=== PATIENT | male | born 1955 | race Caucasian/White ===

== ENCOUNTER 2018-06-19 16:09 | Emergency (ER) | payer MEDICAID ==
[~2018-06-19] VITALS: Ht 185.4 cm; Wt 88.9 kg
[2018-06-19 16:27] VITALS: BP 160/77
[2018-06-19 17:42] LABS: BASOPHILS # (AUTO) 0.08 x10^3/uL (0-0.1); BASOPHILS % (AUTO) 1 % (0-1); EOSINOPHILS # (AUTO) 0.04 x10^3/uL (0-0.4); EOSINOPHILS % (AUTO) 0 % (1-7); LYMPHOCYTES # (AUTO) 2.41 x10^3/uL (1-3.4); LYMPHOCYTES % (AUTO) 20 % (22-44); MD NO; MEAN CORPUSCULAR HEMOGLOBIN 35.3 pg (27.5-34.5); MEAN CORPUSCULAR HGB CONC 34.8 g/dL (33.2-36.2); MEAN CORPUSCULAR VOLUME 101.6 fL (81-97); MEAN PLATELET VOLUME 7.2 fL (7.4-10.4); MONOCYTES # (AUTO) 0.86 x10^3/uL (0.2-0.8); MONOCYTES % (AUTO) 7 % (2-9); NEUTROPHILS # (AUTO) 8.71 x10^3/uL (1.8-6.8); NEUTROPHILS % (AUTO) 72 % (42-75); PLATELET COUNT 471 x10^3/uL (130-400); RED CELL DISTRIBUTION WIDTH 14.5 % (9.4-14.8)
[2018-06-19 17:49] LABS: ALBUMIN 3.9 g/dL (3.4-5.0); ANION GAP 12 mmol/L (5-15); CALCIUM 8.9 mg/dL (8.5-10.1); CHLORIDE 107 mmol/L (98-107)
[2018-06-19 17:52] LABS: CREATININE 0.94 mg/dL (0.7-1.3); SALICYLATE LEVEL < 1.7 mg/dL (2.8-20.0)
[2018-06-19 17:53] LABS: ACETAMINOPHEN < 2 mcg/mL (10-30)
== END 2018-06-19 18:49 | disposition home or self-care (01) ==
LOC: ED 17:15
DX: F41.1 Generalized anxiety disorder (principal); F33.0 Major depressive disorder, recurrent, mild; F10.20 Alcohol dependence, uncomplicated; Z85.828 Personal history of other malignant neoplasm of skin; F17.200 Nicotine dependence, unspecified, uncomplicated; Z79.899 Other long term (current) drug therapy
CPT/HCPCS: 36415; 80048; 80307; 80329; 82040; 85025; 99284; G0480

== ENCOUNTER 2020-07-10 06:49 | Inpatient (IN) | payer MEDICAID ==
[~2020-07-10] VITALS: Ht 185.4 cm; Wt 84.2 kg
[2020-07-10] MEDS ORDERED: POLYETHYLENE GLYCOL 17 GM PACKET PO PRN (07:00)
[2020-07-10] MEDS ORDERED: ACETAMINOPHEN 325 MG TABLET PO PRN (07:00)
[2020-07-10] MEDS ORDERED: ONDANSETRON ODT 4 MG PO PRN (07:00)
[2020-07-10] MEDS ORDERED: BISACODYL 10 MG SUPP PR PRN (07:00)
[2020-07-10] MEDS ORDERED: DOCUSATE 100 MG CAPSULE PO PRN (07:00)
[2020-07-10] MEDS ORDERED: LORazepam 1MG TABLET PO PRN (09:00)
[2020-07-10] MEDS ORDERED: OLANZAPINE 10 MG INJ IM ONE (09:00)
[2020-07-10 09:30] VITALS: BP 125/71
[2020-07-10] MEDS ORDERED: PLEASE ENTER HEIGHT AND WEIGHT MC SCH (09:30)
[2020-07-10 11:34] LABS: BASOPHILS # (AUTO) 0.07 x10^3/uL (0-0.1); BASOPHILS % (AUTO) 1 % (0-1); EOSINOPHILS # (AUTO) 0.13 x10^3/uL (0-0.4); EOSINOPHILS % (AUTO) 2 % (1-7); LYMPHOCYTES # (AUTO) 2.22 x10^3/uL (1-3.4); LYMPHOCYTES % (AUTO) 25 % (22-44); MD NO; MEAN CORPUSCULAR HEMOGLOBIN 33.7 pg (27.5-34.5); MEAN CORPUSCULAR HGB CONC 32.8 g/dL (33.2-36.2); MEAN PLATELET VOLUME 7.4 fL (7.4-10.4); MONOCYTES # (AUTO) 0.69 x10^3/uL (0.2-0.8); MONOCYTES % (AUTO) 8 % (2-9); NEUTROPHILS # (AUTO) 5.68 x10^3/uL (1.8-6.8); NEUTROPHILS % (AUTO) 65 % (42-75); PLATELET COUNT 531 x10^3/uL (130-400); RED BLOOD COUNT 4.23 x10^6/uL (4.38-5.82); RED CELL DISTRIBUTION WIDTH 12.9 % (9.4-14.8)
[2020-07-10 11:43] LABS: ALBUMIN 3.6 g/dL (3.4-5.0); ANION GAP 5 mmol/L (5-15); CALCIUM 9.2 mg/dL (8.5-10.1); CHLORIDE 113 mmol/L (98-107)
[2020-07-10 11:55] LABS: ALANINE AMINOTRANSFERASE 19 U/L (12-78); ALKALINE PHOSPHATASE 77 U/L (45-117); BILIRUBIN,TOTAL 0.6 mg/dL (0.2-1.0); CREATININE 0.89 mg/dL (0.7-1.3); FREE T4 (FREE THYROXINE) 1.19 ng/dL (0.76-1.46); TOTAL PROTEIN 6.9 g/dL (6.4-8.2)
[2020-07-10] MEDS: MULTIVITAMINS/MINERALS TABLET PO SCH (13:41)
[2020-07-10] MEDS ORDERED: CEFTRIAXONE 250 MG IM ONE (18:30)
[2020-07-10] MEDS ORDERED: AZITHROMYCIN 500 MG TABLET PO ONE (18:30)
[2020-07-10] MEDS ORDERED: LIDOCAINE 1%, 2ML IM ONE (18:30)
[2020-07-10] MEDS: THIAMINE 100MG TABLET PO SCH (20:07)
[2020-07-11 05:36] LABS: BASOPHILS # (AUTO) 0.06 x10^3/uL (0-0.1); BASOPHILS % (AUTO) 1 % (0-1); EOSINOPHILS # (AUTO) 0.36 x10^3/uL (0-0.4); EOSINOPHILS % (AUTO) 3 % (1-7); LYMPHOCYTES # (AUTO) 3.71 x10^3/uL (1-3.4); LYMPHOCYTES % (AUTO) 30 % (22-44); MD NO; MEAN CORPUSCULAR HEMOGLOBIN 33.8 pg (27.5-34.5); MEAN CORPUSCULAR HGB CONC 32.5 g/dL (33.2-36.2); MEAN PLATELET VOLUME 7.5 fL (7.4-10.4); MONOCYTES # (AUTO) 0.77 x10^3/uL (0.2-0.8); MONOCYTES % (AUTO) 6 % (2-9); NEUTROPHILS # (AUTO) 7.57 x10^3/uL (1.8-6.8); NEUTROPHILS % (AUTO) 61 % (42-75); PLATELET COUNT 526 x10^3/uL (130-400); RED BLOOD COUNT 4.22 x10^6/uL (4.38-5.82); RED CELL DISTRIBUTION WIDTH 12.9 % (9.4-14.8)
[2020-07-11 06:04] LABS: ANION GAP 5 mmol/L (5-15); CHLORIDE 114 mmol/L (98-107)
[2020-07-11 06:20] LABS: CHOL/HDL RATIO 3.2; CHOLESTEROL, TOTAL 116 mg/dL (140-239); CREATININE 0.85 mg/dL (0.7-1.3); HDL CHOL % 31 % (26-37); HDL CHOLESTEROL (DIRECT) 36 mg/dL (40-60); LDL CHOLESTEROL,CALCULATED 58 mg/dL (54-169); LDL/HDL RATIO 1.6 (0.5-3.0); TRIGLYCERIDES 111 mg/dL (50-200); VLDL CHOLESTEROL 22 mg/dL (0-25)
[2020-07-11 07:14] VITALS: BP 125/76
[2020-07-11] MEDS: THIAMINE 100MG TABLET PO SCH ×2 (08:20→20:20)
[2020-07-11] MEDS: MULTIVITAMINS/MINERALS TABLET PO SCH (08:20)
[2020-07-11] MEDS: FOLIC ACID 1 MG TABLET PO SCH (08:20)
[2020-07-11 17:52] LABS: MICROSCOPIC NOT IND
[2020-07-11 18:05] LABS: AMPHETAMINE SCREEN, URINE Negative (Negative); BARBITURATE SCREEN, URINE Negative (Negative); BENZODIAZEPINE SCREEN, URINE Negative (Negative); CANNABINOID SCREEN, URINE Positive (Negative); COCAINE SCREEN, URINE Negative (Negative); METHADONE SCREEN, URINE Negative (Negative); OPIATE SCREEN, URINE Negative (Negative)
[2020-07-11 21:47] VITALS: BP 121/72
[2020-07-12 05:53] LABS: BASOPHILS # (AUTO) 0.05 x10^3/uL (0-0.1); BASOPHILS % (AUTO) 1 % (0-1); EOSINOPHILS # (AUTO) 0.35 x10^3/uL (0-0.4); EOSINOPHILS % (AUTO) 4 % (1-7); LYMPHOCYTES # (AUTO) 3.26 x10^3/uL (1-3.4); LYMPHOCYTES % (AUTO) 32 % (22-44); MD NO; MEAN CORPUSCULAR HEMOGLOBIN 33.2 pg (27.5-34.5); MEAN CORPUSCULAR HGB CONC 32.2 g/dL (33.2-36.2); MEAN PLATELET VOLUME 7.8 fL (7.4-10.4); MONOCYTES # (AUTO) 0.69 x10^3/uL (0.2-0.8); MONOCYTES % (AUTO) 7 % (2-9); NEUTROPHILS # (AUTO) 5.74 x10^3/uL (1.8-6.8); NEUTROPHILS % (AUTO) 57 % (42-75); PLATELET COUNT 515 x10^3/uL (130-400); RED BLOOD COUNT 4.33 x10^6/uL (4.38-5.82)
[2020-07-12 07:12] VITALS: BP 126/80
[2020-07-12] MEDS: THIAMINE 100MG TABLET PO SCH ×2 (08:13→20:08)
[2020-07-12] MEDS: MULTIVITAMINS/MINERALS TABLET PO SCH (08:13)
[2020-07-12] MEDS: LURASIDONE 20 MG TABLET PO SCH (08:13)
[2020-07-12] MEDS: FOLIC ACID 1 MG TABLET PO SCH (08:13)
[2020-07-12 19:59] VITALS: BP 120/87
[2020-07-13 07:26] VITALS: BP 134/85
[2020-07-13] MEDS: MULTIVITAMINS/MINERALS TABLET PO SCH (08:04)
[2020-07-13] MEDS: FOLIC ACID 1 MG TABLET PO SCH (08:04)
[2020-07-13] MEDS: THIAMINE 100MG TABLET PO SCH ×2 (08:04→20:06)
[2020-07-13] MEDS: LURASIDONE 20 MG TABLET PO SCH (08:04)
[2020-07-13 19:30] VITALS: BP 136/82
[2020-07-14 07:27] VITALS: BP 118/76
[2020-07-14] MEDS: FOLIC ACID 1 MG TABLET PO SCH (08:00)
[2020-07-14] MEDS: LURASIDONE 20 MG TABLET PO SCH (08:00)
[2020-07-14] MEDS: THIAMINE 100MG TABLET PO SCH ×2 (08:00→20:34)
[2020-07-14] MEDS: MULTIVITAMINS/MINERALS TABLET PO SCH (08:00)
[2020-07-14 20:02] VITALS: BP 133/72
[2020-07-15 07:30] VITALS: BP 119/74
[2020-07-15] MEDS: MULTIVITAMINS/MINERALS TABLET PO SCH (08:27)
[2020-07-15] MEDS: LURASIDONE 20 MG TABLET PO SCH (08:27)
[2020-07-15] MEDS: FOLIC ACID 1 MG TABLET PO SCH (08:27)
[2020-07-15] MEDS: THIAMINE 100MG TABLET PO SCH ×2 (08:27→20:25)
[2020-07-15 20:03] VITALS: BP 127/72
[2020-07-16 07:45] VITALS: BP 121/75
[2020-07-16] MEDS: FOLIC ACID 1 MG TABLET PO SCH (09:08)
[2020-07-16] MEDS: MULTIVITAMINS/MINERALS TABLET PO SCH (09:08)
[2020-07-16] MEDS: LURASIDONE 20 MG TABLET PO SCH (09:08)
[2020-07-16] MEDS: THIAMINE 100MG TABLET PO SCH (09:09)
[2020-07-16] MEDS ORDERED: MULT-484 PO (10:34)
[2020-07-16] MEDS ORDERED: LURA20TA PO (10:34)
== END 2020-07-16 11:35 | disposition home or self-care (01) | DRG 885 ==
LOC: 3E 08:48
PROVIDERS: ADMIT Psychiatry & Neurology Psychosomatic Medicine; ATTEND Psychiatry & Neurology Psychosomatic Medicine
DX: F20.0 Paranoid schizophrenia (principal); F10.21 Alcohol dependence, in remission; Y90.9 Presence of alcohol in blood, level not specified; D75.89 Other specified diseases of blood and blood-forming organs; D72.829 Elevated white blood cell count, unspecified; D53.9 Nutritional anemia, unspecified; D47.3 Essential (hemorrhagic) thrombocythemia; Z72.51 High risk heterosexual behavior
CPT/HCPCS: 36415; 87806; J3490; 71045; 80048; 80053; 80061; 80074; 80307; 81003; 82728; 83540; 83550; 83735; 84100; 84439; 84443; 85025; 86592; 87491; 87591; 87635; 93005; J0696; G0475

== ENCOUNTER 2020-07-20 20:04 | Emergency (ER) | payer MEDICAID ==
[~2020-07-20] VITALS: Ht 188 cm; Wt 80.0 kg
[~2020-07-20 20:04] MED LIST: LURA20TA PO; MULT-484 PO
--- NOTE | 2020-07-20 20:55 | NUR ---
received report from JONATAN Andre
--- NOTE | 2020-07-20 21:04 | NUR ---
ERP at bedside.
[2020-07-20] MEDS ORDERED: IBUPROFEN 600 MG TABLET ONE (21:15)
[2020-07-20] MEDS ORDERED: HYDROcodone/APAP 5/325 TABLET ONE (21:16)
--- NOTE | 2020-07-20 21:17 | NUR ---
patient to X ray.
[2020-07-20] MEDS ORDERED: IBUPROFEN 600 MG TABLET PO ONE (21:30)
[2020-07-20] MEDS ORDERED: HYDROcodone/APAP 5/325 TABLET PO PRN (21:30)
--- NOTE | 2020-07-20 21:31 | NUR ---
BACK FROM X RAY. MEDICATED FOR PAIN.
--- NOTE | 2020-07-20 23:04 | NUR ---
re-evaluation done. patient provided with crutches. discharged with instruction. verbalized understanding.
[2020-07-20 23:05] VITALS: BP 125/79
== END 2020-07-20 23:07 | disposition home or self-care (01) ==
LOC: ED 20:34
DX: S70.02XA Contusion of left hip, initial encounter (principal); F17.210 Nicotine dependence, cigarettes, uncomplicated; Z85.828 Personal history of other malignant neoplasm of skin; W18.30XA Fall on same level, unspecified, initial encounter; Y93.89 Activity, other specified; Y92.828 Other wilderness area as the place of occurrence of the external cause; Y99.8 Other external cause status
CPT/HCPCS: 99283; 99406